=== PATIENT | male | born 1975 | race Caucasian/White ===

== ENCOUNTER 2016-10-31 14:12 | Emergency (ER) | payer OTHER | END 2016-10-31 15:00 | disposition left against medical advice (07) | LOC: CED 14:12 | DX: T40.1X1A Poisoning by heroin, accidental (unintentional), initial encounter (principal) | CPT/HCPCS: 99283 ==

== ENCOUNTER 2016-12-16 22:47 | Emergency (ER) | payer OTHER ==
[~2016-12-16] VITALS: Ht 177.8 cm; Wt 77.1 kg
== END 2016-12-16 23:50 | disposition left against medical advice (07) ==
LOC: CED 22:47
DX: Z53.21 Procedure and treatment not carried out due to patient leaving prior to being seen by health care provider (principal)

== ENCOUNTER 2017-01-07 12:53 | Emergency (ER) | payer OTHER ==
[~2017-01-07] VITALS: Ht 177.8 cm; Wt 74.8 kg
== END 2017-01-07 13:44 | disposition left against medical advice (07) ==
LOC: CED 12:53
DX: T40.1X1A Poisoning by heroin, accidental (unintentional), initial encounter (principal); I10 Essential (primary) hypertension; F17.210 Nicotine dependence, cigarettes, uncomplicated
CPT/HCPCS: 99284

== ENCOUNTER 2017-01-11 20:00 | Inpatient (IN) | payer OTHER ==
[~2017-01-11] VITALS: Ht 177.8 cm; Wt 67.1 kg
--- NOTE | ~2017-01-11 | DS ---
Unit #: [id number] #: [id number] Patient: DARRYN HIRSCH [id number] [facility] [address] [place] [address] [id number] MR#: [id number] NAME: DARRYN HIRSCH. ROOM: [facility] Age: 41 Sex: M Admission Date: 01/11/2017 : 1975 Discharge Date: 01/16/2017 Attending Physician: Altaf Powell M.D. Primary Care Physician: Primary Care Physician No DISCHARGE SUMMARY REASON FOR ADMISSION Detox. DIAGNOSTIC STUDIES Laboratory data remarkable for albumin 3.1. Urine drug screen positive for amphetamine. HOSPITAL COURSE The patient was admitted to inpatient unit on January 11 and discharged on 01/16/17. The patient was treated with the chemical dependency group, expressive therapy, medication management. Subsequently the patient showed improvements and the patient was discharged with the plan to followup in outpatient program. DISCHARGE DIAGNOSES Psychiatric: [place] I Opiate use disorder, severe, F11.20. Mood disorder, NOS, F32.9. [place] II Deferred. [place] III None. [place] IV Psychosocial stressor. 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 DISCHARGE MEDICATIONS 1. Trazodone 75 mg at bedtime for sleep 2. Zyprexa 10 mg at bedtime for mood stabilization CONDITION AT DISCHARGE The patient is pleasant and cooperative, denied any psychotic symptoms or any suicidal ideation. PROGNOSIS Guarded. DIET AND ACTIVITY As tolerated. Unit #: [id number] #: [id number] Patient: DARRYN HIRSCH Dictated by... Royal Mallory/teddy TD: 01/18/2017 09:35 JOB #: [id number] DISCHARGE SUMMARY Page 1 of 1 X Altaf Powell MD X DISCHARGE SUMMARY
--- NOTE | ~2017-01-11 | PN ---
Unit #: [id number] #: [id number] Patient: DARRYN HIRSCH [id number] [facility] [address] [place] [address] [id number] MR#: [id number] NAME: DARRYN HIRSCH. ROOM: [facility] Age: 41 Sex: M Admission Date: 01/11/2017 : 1975 Attending Physician: Altaf Powell M.D. Admitting Physician: Altaf Powell M.D. Primary Care Physician: Primary Care Physician Tracy JACK PROGRESS NOTES DATE OF SERVICE 01/14/2017 DISCUSSION Mr. Schreiber is a 41-year-old male. Patient interviewed, chart reviewed. Obtained information from nursing staff. Patient was compliant and cooperative. Mood sad, dysphoric. Flat affect, guarded. Patient reports making progress. No side effects from medication. Patient complete review of systems unremarkable. MENTAL STATUS EXAMINATION General appearance, patient dressed casually. Attention span and concentration fair. Oriented to time, place and person. Mood and affect labile. Speech monotone. Thought process concrete. Patient denied any thoughts of harming self or others. Recent and remote memory poor. Insight and judgement poor. DIAGNOSES Opiate use disorder severe. ASSESSMENT/PLAN Advise to continue with current medication and therapeutic protocol. If needed consider further adjustment of medication. Dictated by... Royal Mallory/dina TD: 01/16/2017 03:36 JOB #: [id number] Unit #: [id number] #: [id number] Patient: DARRYN HIRSCH [facility] PROGRESS NOTES Page 1 of 1 X Altaf Powell MD PROGRESS NOTE
--- NOTE | ~2017-01-11 | PN ---
Unit #: [id number] #: [id number] Patient: ABDOUL HIRSCH [id number] [facility] [address] [place] [address] [id number] I MR#: [id number] NAME: ABDOUL HIRSCH. ROOM: 74 Age: 41 Sex: M Admission Date: 01/11/2017 : 1975 Attending Physician: Altaf Powell M.D. Admitting Physician: Altaf Powell M.D. Primary Care Physician: Primary Care Physician Tracy JACK PROGRESS NOTES DATE 01/13/2017 DISCUSSION Mr. Abdoul Hirsch is a 41-year-old male seen on 01/13/2017. Patient interviewed. Chart reviewed. Obtained information from nursing staff. Patient is currently on detox protocol. Still having withdrawal symptoms, anxious, nervous, withdrawn, isolative, flat affect, sad, dysphoric mood. Patient also reports severe anxiety, nervousness, mood lability. Complete review of system unremarkable. MENTAL STATUS EXAMINATION General appearance, patient dressed casually. Attention span, concentration fair. Oriented in time, place and person. Mood and affect labile. Speech monotone. Thought process concrete. Patient denied any thoughts of harming self or others. Recent and remote memory poor. Insight and judgement poor. DIAGNOSIS Polysubstance abuse. ASSESSMENT/PLAN Advised to continue with current medication and therapeutic protocol. If needed, consider further adjustment of medication. Dictated by... Royal Mallory/kirill TD: 01/13/2017 22:48 JOB #: [id number] Unit #: [id number] #: [id number] Patient: ABDOUL HIRSCH [place] PROGRESS NOTES Page 1 of 1 X Altaf Powell MD PROGRESS NOTE
--- NOTE | ~2017-01-11 | PA ---
Unit #: [id number] #: [id number] Patient: ABDOUL HIRSCH [id number] [facility] [address] [place] [address] [id number] I MR#: [id number] NAME: ABDOUL HIRSCH. ROOM: [facility] Age: 41 Sex: M Admission Date: 01/11/2017 : 1975 Date of Assessment: 01/12/2017 Attending Physician: Altaf Powell M.D. Admitting Physician: Altaf Powell M.D. Primary Care Physician: Primary Care Physician No PSYCHIATRIC ASSESSMENT INFORMANTS The patient reliability, fair informant and chart reliability, good. CHIEF COMPLAINT Opioid detox and opioid abuse. HISTORY OF PRESENT ILLNESS Mr. Abdoul Hirsch is a 41-year-old male, presented with the above-mentioned complaint. The patient presented for detox from heroin. The patient reported using half a gram of heroin daily by IV. The patient reported overdosed at least 17 times. The patient reports the patient had been in drug court and not completed program due to relapse. The patient denied any current suicidal or homicidal ideation or psychotic symptom. The patient has a family history of drug abuse and all friends who use drugs. The patient reports drug abuse causing a lot of problem in his life. The patient reports tobacco use, age of onset 11; marijuana, age of onset 11; opioid, age of onset 36; and amphetamine, age of onset 36. The patient reported a history of blackout, hepatitis, withdrawal, and IV drug use. Currently, reporting diarrhea and headaches. Needing inpatient admission at this time for psychiatric stabilization. PAST PSYCHIATRIC HISTORY Remarkable for history of previous treatment at [facility] for detox and [facility] in 2001. FAMILY HISTORY AND SOCIAL HISTORY The patient currently homeless, poor support system. No history of abuse. History of legal problems. The patient was in alf for receiving stolen property and was in a drug court for 2 years. MEDICAL HISTORY Unremarkable for any chronic medical illness. Musculoskeletal; muscle strength and tone, no atrophy or abnormal movement. Gait normal. MEDICATION HISTORY None. ALLERGIES No known drug allergies. SUBSTANCE ABUSE HISTORY Please see above. Unit #: [id number] #: [id number] Patient: ABDOUL HIRSCH REVIEW OF SYSTEMS HEENT: Eyes, clear. Ears, nose, mouth, and throat; clear. CARDIOVASCULAR: Unremarkable. RESPIRATORY: Unremarkable. GI: Unremarkable. : Unremarkable. SKIN: Unremarkable. LYMPH NODE: Unremarkable. NEUROLOGIC: Unremarkable. ENDOCRINE: Unremarkable. HEMATOLOGIC: Unremarkable. ALLERGIC/IMMUNOLOGIC: Unremarkable. MUSCULOSKELETAL: Muscle strength and tone, no atrophy or abnormal movement. Gait normal. MENTAL STATUS EXAMINATION CONSTITUTIONAL: Measurement of vital signs; temperature 98.5, heart rate 80, respiratory rate 19, oxygen saturation 99%, and blood pressure 105/61. Height 5 feet 10 inches and weight 148 pounds. GENERAL APPEARANCE: The patient dressed casually. The patient did not show any facial deformity. MUSCULOSKELETAL: Please see above. PSYCHIATRIC EXAMINATION Description of speech; regular rate, normal volume, normal articulation, and coherent. Description of thought process, goal directed. Description of association, intact. Description of abnormal psychotic thinking; the patient denied any hallucination or delusions, but having withdrawal symptom. Description of the patient's judgment: Concerning everyday activity, poor. Social situation, poor. Concerning psychiatric condition, poor. Complete mental status examination; oriented in time, place, and person. Recent and remote memory, fair. Attention span and concentration, fair. Language, able to name object and repeat phrases. Fund of knowledge, aware of current event and passive vocabulary intact. Mood and affect, sad and dysphoric. Insight and judgment, fair to poor. ASSETS AND LIABILITIES Assets, the patient is articulate and able to take care of his ADL. Liability, history of substance abuse. ADMITTING DIAGNOSES Psychiatric: Opioid use disorder, severe, F11.20 and mood disorder, not otherwise specified, F32.9. Secondary diagnosis: Deferred. Medical diagnosis: None. Stressors: Psychosocial stressors. PSYCHIATRIC PLAN AND TREATMENT GOAL AND DISCHARGE PLAN 1. Advised to admit the patient on the inpatient unit. Provide safe, supportive, and structured environment. 2. Ordered labs; CBC, CMP, UA, and UDS. Detox protocol and detox monitoring. The patient to attend all the programing, group therapy, individual therapy, and chemical dependency group. Treatment goal to Unit #: [id number] #: [id number] Patient: ABDOUL HIRSCH attain euthymic mood, gain insight into his problem, and learn coping skills. DISCHARGE PLAN Plan to stabilize the patient and consider followup in outpatient program. ESTIMATED LENGTH OF STAY 3 to 5 days. Dictated by... Royal MalloryC/parvez TD: 01/12/2017 14:58 JOB #: [id number] PSYCHIATRIC ASSESSMENT Page 1 of 1 X Altaf Powell MD PSYCHIATRIC ASSESSMENT
--- NOTE | ~2017-01-11 | A ---
[facility] Nutrition Therapy DATE: 01/13/17 Patient: DARRYN HIRSCH Physician: ABEBE Address: [address] [facility] Room/Bed: [address], Zip: [place] [address] Admit Date: 01/11/17 Date of : [birth year] Height: 5 10 Weight: [id number] NUTRITIONAL ASSESSMENT: REASON: UNINTENTIONAL WEIGHT LOSS PATIENT ADMITTED FOR HEROIN AND METH DETOX PMH: PSORIASIS Anthropometrics: HT: 70", WT: 148#, BMI: 21.2 Labs: NO LABS AVAILABLE Meds: MVI, DETOX PROTOCOL Assessment: PATIENT IS A 41 Y/O MALE ADMITTED FOR HEROIN AND METH DETOX. PATIENT IS CURRENTLY UNEMPLOYED, HOMELESS, SMOKES 1/2-1 PPD, HAS DAILY HEROIN AND METH USE, AND A HX OF MARIJUANA USE. UPON ADMIT PATIENT STATED A GOOD APPETITE WITH NO RECENT WEIGHT CHANGES, AND HE ONLY SLEEPS ~1HR/NIGHT ON AVERAGE. WEIGHT HX PER [facility] [employer] DOES SHOW A ~15# WEIGHT LOSS OVER LAST SEVERAL MONTHS. NURSING REPORTS FAIR PO INTAKES. THERE ARE NO SKIN OR GI ISSUES NOTED ATT. PATIENT IS ON A REGULAR DIET AND HIS BMI IS WITHIN A HEALTHY RANGE. Dx: UNINTENTIONAL WEIGHT LOSS R/T CURRENT CONDITIONS, DRUG USE AEB WEIGHT HX, NUTRITIONAL RISK POINT Intervention: REGULAR DIET, MEDS PER MD, DETOX, PSYCH Monitoring, Evaluation and Goals: 1. ADEQUATE PO INTAKES >50% OF MEALS 2. PREVENT, CORRECT MICRO/MACRO NUTRIENT DEFICIENCIES MONITOR: WEIGHTS, LABS, PO/FLUID INTAKES Recommendations: 1. CONTINUE REGULAR DIET TOLERATED. OFFER SNACKS BETWEEN MEALS 2. PREVENT, CORRECT MICRO/MACRO NUTRIENT DEFICIENCIES 3. OBTAIN WEIGHTS ROUTINELY (EVERY 3-4 DAYS) 4. IF PO INTAKES ARE BELOW 50% OF MEALS PLEASE ORDER ENSURE BID TO PROMOTE ADEQUATE KCAL AND PROTEIN INTAKES RD TO F/U PER PROTOCOL AND PRN R/T PATIENT MILDLY COMPROMISED [facility] Nutrition Therapy DATE: 01/13/17 Patient: DARRYN HIRSCH Physician: ABEBE Address: [address] [place] [address] Room/Bed: [address], Zip: [place] [address] Admit Date: 01/11/17 Date of : [birth year] Height: 5 10 Weight: [phone] Respectfully, XU LIRA RD, LD [employer] [facility] [employer] cc: client file
--- NOTE | ~2017-01-11 | HP ---
Unit #: [id number] #: [id number] Patient: ABDOUL HIRSCH [id number] [place] [address] [id number] MR#: [id number] NAME: ABDOUL HIRSCH. ROOM: [facility] Age: 41 Sex: M Admission Date: 01/11/2017 : 1975 Attending Physician: Altaf Powell M.D. Admitting Physician: Altaf Powell M.D. Primary Care Physician: Primary Care Physician No HISTORY AND PHYSICAL HISTORY OF PRESENT ILLNESS Abdoul is a 41 year old admitted to [facility] because of his polysubstance abuse. Which includes IV heroin and benzodiazepines. PAST MEDICAL HISTORY 1. Long history of illicit substance abuse to include IV drugs. 2. Psoriasis. PAST SURGICAL HISTORY Nothing reported. ALLERGIES No known drug allergies. SOCIAL HISTORY Smokes one pack per day. Denies alcohol. Admits to a long history of poly illicit substance abuse to include IV drugs. FAMILY HISTORY Medically noncontributory. REVIEW OF SYSTEMS CONSTITUTIONAL: No fever or chills. HEENT: Denies any sore throat, ear pain or runny nose. CARDIOVASCULAR: Denies chest pain, irregular heart rhythm or palpitations. CHEST: Denies shortness of breath or cough. No hemoptysis. GASTROINTESTINAL: Denies nausea, vomiting, diarrhea or chronic constipation. ENDOCRINE: Denies history of increased thirst or urination. No recent significant weight loss or gain. GENITOURINARY: Denies dysuria, frequency, or hematuria. SKIN: Denies any rashes. HEMATOLOGIC: Denies history of increased bleeding or bruising. MUSCULOSKELETAL: Denies any hot, swollen joints. No generalized muscle pain. NEUROLOGIC: Denies problems with vision or speech. No frequent, severe headaches. No numbness, tingling or weakness in any extremities. Denies loss of bladder or bowel control. CURRENT MEDICATIONS Detox protocol PHYSICAL EXAMINATION Unit #: [id number] #: [id number] Patient: ABDOUL HIRSCH GENERAL: Alert, well-nourished, in no apparent distress. VITAL SIGNS: Blood pressure 110/60, heart rate 80, respirations 16, temperature 98.6. WEIGHT: 148. HEIGHT: 5 foot 10 inches. SKIN: Warm and dry without rash or lesion. HEENT: Normocephalic. TMs not viewed. Oral and nasal passages clear. Conjunctivae clear. Pupils equal, round and reactive to light and accommodation. Extraocular movements intact. NECK: Supple without lymphadenopathy or thyromegaly. HEART: Regular rate and rhythm without murmur. LUNGS: Clear. ABDOMEN: Soft, nontender. : Not done. EXTREMITIES: No evidence of cyanosis, clubbing or edema. Moves all extremities without focal deficit. NEUROLOGICAL: Grossly within normal limits. Cranial Nerves: II: Visual guerrero are intact. III, IV AND : Extraocular movements are intact. Pupils are equal, round and reactive to light. V: Facial sensation is grossly normal. VII: Facial movements and expression are normal. VIII: Auditory acuity grossly intact. IX, X: Uvula is midline. Phonation is normal. XI: Patient shrugs shoulders and turns head normally. XII: Tongue protrudes in the midline. Sensory and Motor Function: Sensory and motor sensation is grossly normal. Motor: moves all extremities well. Coordination: Gait is normal. Deep Tendon Reflexes: Intact. IMPRESSION Psychiatric admission. RECOMMENDATIONS PSYCHIATRIC: Per psychiatrist. MEDICAL: I see no contraindications to participating in facility's activities. MEDICAL PROGNOSIS Good. MEDICAL CONDITION Stable. Dictated by... Brendan ShearerAOsvaldo. for Royal Lincoln/dina TD: 01/12/2017 20:59 JOB #: [id number] Unit #: [id number] #: [id number] Patient: ABDOUL HIRSCH HISTORY AND PHYSICAL Page 1 of 1 X Maral Belle HISTORY AND PHYSICAL
--- NOTE | ~2017-01-11 | PN ---
Unit #: [id number] #: [id number] Patient: DARRYN HIRSCH [id number] [facility] [address] [place] [address] [id number] MR#: [id number] NAME: DARRYN HIRSCH. ROOM: 82 Age: 41 Sex: M Admission Date: 01/11/2017 : 1975 Attending Physician: Altaf Powell M.D. Admitting Physician: Altaf Powell M.D. Primary Care Physician: Primary Care Physician Tracy JACK PROGRESS NOTES DATE OF SERVICE 01/15/2017 DISCUSSION Mr. Schreiber is a 41-year-old male seen on 01/15/2017. Patient interviewed, chart reviewed. Obtained information from nursing staff. Patient was compliant and cooperative. Mood was labile. Patient's vital signs 98.8, 57, 116/79. Complete review of systems unremarkable. MENTAL STATUS EXAMINATION General appearance, patient dressed casually. Attention span and concentration fair. Oriented to time, place and person. Mood and affect labile. Speech monotone. Thought process concrete. Patient denied any thoughts of harming self or others. Recent and remote memory poor. Insight and judgement poor. DIAGNOSES Amphetamine use disorder, severe. ASSESSMENT/PLAN Advise to continue with current medication and therapeutic protocol. If needed consider further adjustment of medication. Dictated by... Royal Mallory/dina TD: 01/17/2017 04:48 JOB #: [id number] Unit #: [id number] #: [id number] Patient: DARRYN HIRSCH [facility] PROGRESS NOTES Page 1 of 1 X Altaf Powell MD PROGRESS NOTE
[2017-01-13 10:23] LABS: BASOPHIL% 0.4 % (0-2.5); DIFF IND NO; EOSINOPHIL# 0.2 X10e3 (0-0.7); EOSINOPHIL% 3.7 % (0.0-7.0); HEMATOCRIT 39.4 % (38.0-50.0); HEMOGLOBIN 13.3 gm/dL (13.0-16.0); LYMPHOCYTE# 2.1 X10e3 (1.0-3.5); LYMPHOCYTE% 35.6 % (17.0-45.0); MEAN CELL VOLUME 86.9 FL (83-96); MEAN CORPUSCULAR HEMOGLOBIN 29.4 PG (28-34); MEAN CORPUSCULAR HGB CONC 33.8 g/dL (30-36); MEAN PLATELET VOLUME 10.6 FL (6.5-11.5); MONOCYTE# 0.5 X10e3 (0-1.0); MONOCYTE% 8.4 % (3.0-12.0); NEUTROPHIL# 3.1 X10e3 (1.5-7.1); NEUTROPHIL% 51.9 % (40-75); PLATELET COUNT 200 X10e3 (140-420); RED BLOOD COUNT 4.53 X10e (3.90-5.60); RED CELL DISTRIBUTION WIDTH 13.3 % (11.0-15.5)
[2017-01-13 10:34] LABS: ALBUMIN SERUM 3.1 g/dL (3.5-5.0); BILIRUBIN,TOTAL 0.5 mg/dL (0.2-2.0); BUN/CREATININE RATIO 21.42; CALCIUM SERUM 8.7 mg/dL (8.4-10.2); CREATININE SERUM 0.7 mg/dL (0.6-1.4); GLOM FILT RATE Estimated 116.4 mL/min (>60); POTASSIUM 3.8 mmol/L (3.5-5.1); PROTEIN TOTAL SERUM 6.1 g/dL (6.0-8.3)
[2017-01-14 12:54] LABS: URINE APPEARANCE CLEAR; URINE BILIRUBIN NEG (NEG); URINE BLOOD NEG (NEG); URINE COLOR YELLOW; URINE GLUCOSE NEG (NEG); URINE KETONE NEG (NEG); URINE LEUKOCYTE ESTERASE NEG (NEG); URINE NITRATE NEG (NEG); URINE PH 7.5 (5-8); URINE PROTEIN NEG (NEG); URINE SPECIFIC GRAVITY 1.009 (1.003-1.035)
[2017-01-14 13:06] LABS: AMPHETAMINE POS (NEG); BARBITURATES NEG (NEG); BENZODIAZEPINES NEG (NEG); COCAINE NEG (NEG); MARIJUANA NEG (NEG); OPIATES NEG (NEG); TRICYCLIC ANTIDEPRESSANTS NEG (NEG); U METHADONE NEG (NEG)
== END 2017-01-16 13:05 | DRG 897 ==
LOC: P1E 22:51 → POF 01-14 13:54 → P1E 01-14 13:55
PROVIDERS: Psychiatry & Neurology Psychiatry
PROC: HZ2ZZZZ Detoxification Services for Substance Abuse Treatment (ICD-10-PCS; principal; 2017-01-12)
DX: F11.20 Opioid dependence, uncomplicated (principal); F15.20 Other stimulant dependence, uncomplicated; F39 Unspecified mood [affective] disorder
CPT/HCPCS: 80053; 80307; 81003; 85025; 86592